=== PATIENT | female | born 1945 | race Asian ===

== ENCOUNTER → 2018-07-16 | Outpatient (CLI) | payer MEDICARE, OTHER | END | disposition home or self-care (01) | LOC: VAS 12:35 | DX: R22.42 Localized swelling, mass and lump, left lower limb (principal) | CPT/HCPCS: 93971 ==

== ENCOUNTER 2018-07-24 13:14 | Inpatient (IN) | payer MEDICARE, OTHER ==
[2018-07-24] MEDS: SODIUM CHLORIDE 0.9% 1L BAG IV* (14:10)
[2018-07-24 14:26] LABS: ADD MAN DIFF? NO
[2018-07-24 14:36] LABS: BASOPHIL # 0.1 10^3/ul (0.0-0.1); BASOPHILS % 0.7 % (0.0-2.0); EOSINOPHILS # 0.3 10^3/ul (0.0-0.5); EOSINOPHILS % 2.3 % (0.0-7.0); HEMATOCRIT 32.7 % (37.0-47.0); HEMOGLOBIN 10.1 g/dl (12.0-16.0); LYMPHOCYTES # 0.9 10^3/ul (0.8-2.9); LYMPHOCYTES % 8.1 % (15.0-51.0); MEAN CORPUSCULAR HEMOGLOBIN 26.9 pg (29.0-33.0); MEAN CORPUSCULAR HGB CONC 30.9 g/dl (32.0-37.0); MEAN CORPUSCULAR VOLUME 87.2 fl (82.0-101.0); MONOCYTES % 9.5 % (0.0-11.0); NEUTROPHIL # 8.5 10^3/ul (1.6-7.5); NEUTROPHILS % 78.9 % (39.0-77.0); PLATELET COUNT 413 10^3/UL (140-415); RED BLOOD COUNT 3.75 10^6/ul (4.20-5.40); RED CELL DISTRIBUTION WIDTH 15.1 % (11.5-14.5)
[2018-07-24 14:36] LABS: WHITE BLOOD COUNT 10.8 10^3/ul (4.8-10.8)
[2018-07-24 14:51] LABS: LACTIC ACID 1.7 mmol/L (0.5-2.0)
[2018-07-24 14:54] LABS: INR 1.01; PARTIAL THROMBOPLASTIN TIME 36.9 Sec (23.0-35.0); PROTIME 13.4 Sec (11.9-14.9)
[2018-07-24 14:58] LABS: ALANINE AMINOTRANSFERASE 19 IU/L (13-69); ALBUMIN 3.7 g/dl (3.3-4.9); ALBUMIN/GLOBULIN RATIO 1.05; ALKALINE PHOSPHATASE 207 IU/L (42-121); ANION GAP 19 (8-16); ASPARTATE AMINO TRANSFERASE 18 IU/L (15-46); BILIRUBIN,INDIRECT 0.3 mg/dl (0-1.1); BILIRUBIN,TOTAL 0.3 mg/dl (0.2-1.3); BLOOD UREA NITROGEN 15 mg/dl (7-20); CALCIUM 8.3 mg/dl (8.4-10.2); CARBON DIOXIDE 31 mmol/L (21-31); CHLORIDE 94 mmol/L (97-110); CREATININE 3.61 mg/dl (0.44-1.00); GLUCOSE 94 mg/dl (70-220); POTASSIUM 3.5 mmol/L (3.5-5.1); SODIUM 140 mmol/L (135-144); TOTAL PROTEIN 7.2 g/dl (6.1-8.1)
[2018-07-24 15:09] LABS: TROPONIN-I 0.036 ng/ml (0.000-0.120)
[2018-07-24] MEDS ORDERED: ONDANSETRON 4 MG INJ IV (18:30)
[2018-07-24] MEDS ORDERED: NACL 0.9% 3 ML SYG IV (18:30)
[2018-07-24] MEDS ORDERED: NITROGLYCERIN (SL) 0.4 MG TAB SL (18:30)
[2018-07-24] MEDS ORDERED: LORAZEPAM 0.5 MG TAB PO (18:30)
[2018-07-24] MEDS ORDERED: CEFTRIAXONE 1 GM INJ IVPB (18:30)
[2018-07-24] MEDS ORDERED: GLUCOSE GEL 15 GRAM TUBE PO ×2 (19:00)
[2018-07-24] MEDS ORDERED: DEXTROSE 50% 50 ML SYRINGE IV ×2 (19:00)
[2018-07-24] MEDS ORDERED: GLUCOSE GEL 15 GRAM TUBE BUCCAL (19:00)
[2018-07-24] MEDS ORDERED: GLUCAGON 1 MG INJ IM (19:00)
[2018-07-24] MEDS: CEFTRIAXONE 1 GM/NS 50 ML IVPB (19:45)
[2018-07-24] MEDS: INSULIN ASPART [NOVOLOG] 3 ML PEN SC (21:00)
[2018-07-24] MEDS: NIFEdipine (XL) 60 MG TAB PO ×2 (21:29→22:09)
[2018-07-24] MEDS: INSULIN GLARGINE [LANTus] (100 UNITS/ML) SYG SC (21:39)
[2018-07-24 22:39] LABS: LACTIC ACID 1.4 mmol/L (0.5-2.0)
[2018-07-24 22:57] LABS: ADD UMIC YES; UR ASCORBIC ACID 40 mg/dL (NEGATIVE); UR BACTERIA MANY /HPF (NONE SEEN); UR BILIRUBIN (Dip) NEGATIVE (NEGATIVE); UR BLOOD (Dip) NEGATIVE (NEGATIVE); UR CLARITY TURBID (CLEAR); UR COLOR AMBER (YELLOW); UR GLUCOSE (Dip) 1+ mg/dL (NEGATIVE); UR KETONES (Dip) TRACE mg/dL (NEGATIVE); UR LEUKOCYTE ESTERASE (Dip) NEGATIVE Leu/ul (NEGATIVE); UR NITRITE (Dip) NEGATIVE (NEGATIVE); UR RBC 13 /HPF (0-5); UR SQUAMOUS EPITHELIAL CELL MANY /HPF (FEW); UR TOTAL PROTEIN (Dip) 3+ mg/dl (NEGATIVE); UR UROBILINOGEN (Dip) NEGATIVE (NEGATIVE); UR WBC 15 /HPF (0-5)
[2018-07-25] MEDS: ALBUTEROL/IPRATROPIUM (NEB) 3 ML AMP HHN (00:20)
[2018-07-25] MEDS: METOLAZONE 5 MG TAB PO (00:48)
[2018-07-25 01:14] LABS: LACTIC ACID 0.9 mmol/L (0.5-2.0)
[2018-07-25] MEDS: ACCU-CHEK XX (02:00)
[2018-07-25 07:18] LABS: ADD MAN DIFF? NO
[2018-07-25 07:21] LABS: BASOPHIL # 0.1 10^3/ul (0.0-0.1); BASOPHILS % 0.9 % (0.0-2.0); EOSINOPHILS # 0.2 10^3/ul (0.0-0.5); EOSINOPHILS % 2.3 % (0.0-7.0); HEMATOCRIT 30.5 % (37.0-47.0); HEMOGLOBIN 9.3 g/dl (12.0-16.0); LYMPHOCYTES % 9.8 % (15.0-51.0); MEAN CORPUSCULAR HGB CONC 30.5 g/dl (32.0-37.0); MEAN CORPUSCULAR VOLUME 88.7 fl (82.0-101.0); MEAN PLATELET VOLUME 9.3 fl (7.4-10.4); MONOCYTE # 0.9 10^3/ul (0.3-0.9); MONOCYTES % 8.5 % (0.0-11.0); NEUTROPHIL # 7.8 10^3/ul (1.6-7.5); NEUTROPHILS % 78.3 % (39.0-77.0); PLATELET COUNT 413 10^3/UL (140-415); RED BLOOD COUNT 3.44 10^6/ul (4.20-5.40); RED CELL DISTRIBUTION WIDTH 15.2 % (11.5-14.5)
[2018-07-25 07:29] LABS: HEMOGLOBIN A1C 5.4 % (0-5.9)
[2018-07-25 07:44] LABS: ALBUMIN/GLOBULIN RATIO 1.03; ANION GAP 19 (8-16); BILIRUBIN,TOTAL 0.1 mg/dl (0.2-1.3)
[2018-07-25 07:46] LABS: ALANINE AMINOTRANSFERASE 11 IU/L (13-69); ALBUMIN 3.3 g/dl (3.3-4.9); ALKALINE PHOSPHATASE 195 IU/L (42-121); ASPARTATE AMINO TRANSFERASE 19 IU/L (15-46); BILIRUBIN,INDIRECT 0.1 mg/dl (0-1.1); BLOOD UREA NITROGEN 24 mg/dl (7-20); CALCIUM 7.9 mg/dl (8.4-10.2); CARBON DIOXIDE 31 mmol/L (21-31); CHLORIDE 94 mmol/L (97-110); CREATININE 4.82 mg/dl (0.44-1.00); GLUCOSE 86 mg/dl (70-220); MAGNESIUM 1.9 mg/dl (1.7-2.5); PHOSPHORUS 3.7 mg/dl (2.5-4.9); POTASSIUM 3.9 mmol/L (3.5-5.1); SODIUM 140 mmol/L (135-144); TOTAL PROTEIN 6.5 g/dl (6.1-8.1)
[2018-07-25] MEDS: INSULIN ASPART [NOVOLOG] 3 ML PEN SC ×7 (07:55→20:36)
[2018-07-25 08:20] LABS: HEPATITIS B SURFACE ANTIGEN NEGATIVE (NEGATIVE)
[2018-07-25] MEDS: ALBUMIN HUMAN 25% 100 ML IV (08:43)
[2018-07-25] MEDS ORDERED: FUROSEMIDE 40 MG TAB PO (09:00)
[2018-07-25] MEDS: PANTOPRAZOLE (EC) 40 MG TAB PO (09:58)
[2018-07-25] MEDS: EZETIMIBE 10 MG TAB PO (09:58)
[2018-07-25] MEDS: CALCIUM CARBONATE 1.25 GM TAB PO (09:58)
[2018-07-25] MEDS: NIFEdipine (XL) 60 MG TAB PO ×2 (12:36→20:36)
[2018-07-25] MEDS: ISOSORBIDE MONONITRATE(SR)30 MG TAB PO (12:36)
[2018-07-25] MEDS: LIDOCAINE 1% (MPF) 5 ML VIAL (15:43)
[2018-07-25 17:40] LABS: FLD PMN% 13.1 %; FLD RBC 3000 /uL; FLD WBC 406 /cmm
[2018-07-25 17:55] LABS: FLUID LD 253 U/L; FLUID TOTAL PROTEIN 3.5 g/dl; FLUID TYPE THORACENTESIS FLUID
[2018-07-25 18:09] LABS: FLUID GLUCOSE 55 mg/dl; FLUID TYPE THORACENTESIS FLUID
[2018-07-25 18:12] LABS: FLD CLARITY HAZY; FLD COLOR YELLOW
[2018-07-25 18:12] LABS: FLD TYPE PLEURAL
[2018-07-25 18:13] LABS: FLD MN% 86.9 %
[2018-07-25] MEDS: CEFTRIAXONE 1 GM/NS 50 ML IVPB (18:27)
[2018-07-25 19:16] LABS: CREATINE KINASE 49 IU/L (23-200)
[2018-07-25 19:26] LABS: CK INDEX 3.9
[2018-07-25] MEDS ORDERED: INSULIN GLARGINE [LANTus] (100 UNITS/ML) SYG SC (20:00)
[2018-07-25] MEDS: INSULIN GLARGINE [LANTus] (100 UNITS/ML) SYG SC (20:41)
[2018-07-26 01:13] LABS: CREATINE KINASE 52 IU/L (23-200)
[2018-07-26 01:23] LABS: CK INDEX 3.8; CK-MB 1.97 ng/ml (0.0-2.4)
[2018-07-26 01:26] LABS: TROPONIN-I 0.037 ng/ml (0.000-0.120)
[2018-07-26] MEDS: ACCU-CHEK XX (02:00)
[2018-07-26 07:31] LABS: ADD MAN DIFF? NO
[2018-07-26 07:36] LABS: BASOPHIL # 0.1 10^3/ul (0.0-0.1); BASOPHILS % 0.8 % (0.0-2.0); EOSINOPHILS # 0.3 10^3/ul (0.0-0.5); EOSINOPHILS % 2.9 % (0.0-7.0); HEMATOCRIT 27.5 % (37.0-47.0); HEMOGLOBIN 8.4 g/dl (12.0-16.0); LYMPHOCYTES # 0.8 10^3/ul (0.8-2.9); LYMPHOCYTES % 8.9 % (15.0-51.0); MEAN CORPUSCULAR HEMOGLOBIN 26.8 pg (29.0-33.0); MEAN CORPUSCULAR HGB CONC 30.5 g/dl (32.0-37.0); MEAN CORPUSCULAR VOLUME 87.6 fl (82.0-101.0); MEAN PLATELET VOLUME 9.5 fl (7.4-10.4); MONOCYTE # 0.8 10^3/ul (0.3-0.9); MONOCYTES % 8.6 % (0.0-11.0); NEUTROPHIL # 7.1 10^3/ul (1.6-7.5); NEUTROPHILS % 78.4 % (39.0-77.0); PLATELET COUNT 367 10^3/UL (140-415); RED BLOOD COUNT 3.14 10^6/ul (4.20-5.40); RED CELL DISTRIBUTION WIDTH 15.1 % (11.5-14.5)
[2018-07-26 07:36] LABS: WHITE BLOOD COUNT 9.1 10^3/ul (4.8-10.8)
[2018-07-26] MEDS: ALBUMIN HUMAN 25% 100 ML IV (07:43)
[2018-07-26] MEDS: INSULIN ASPART [NOVOLOG] 3 ML PEN SC ×7 (07:55→21:00)
[2018-07-26 07:57] LABS: CREATINE KINASE 65 IU/L (23-200)
[2018-07-26 07:58] LABS: CHOL/HDL RATIO 3.7 RATIO; HDL CHOLESTEROL 28 mg/dl (33-92); LDL CHOLESTEROL,CALCULATED 60 mg/dl; TRIGLYCERIDES 80 mg/dl (0-149)
[2018-07-26 07:58] LABS: CHOLESTEROL 104 mg/dl (100-200)
[2018-07-26 08:05] LABS: ANION GAP 21 (8-16); BLOOD UREA NITROGEN 41 mg/dl (7-20); CALCIUM 7.3 mg/dl (8.4-10.2); CARBON DIOXIDE 27 mmol/L (21-31); CHLORIDE 94 mmol/L (97-110); CREATININE 6.52 mg/dl (0.44-1.00); GLUCOSE 181 mg/dl (70-220); MAGNESIUM 1.7 mg/dl (1.7-2.5); PHOSPHORUS 4.1 mg/dl (2.5-4.9); POTASSIUM 4.5 mmol/L (3.5-5.1); SODIUM 137 mmol/L (135-144)
[2018-07-26 08:08] LABS: CK INDEX 2.8; CK-MB 1.79 ng/ml (0.0-2.4); TROPONIN-I 0.042 ng/ml (0.000-0.120)
[2018-07-26] MEDS: ISOSORBIDE MONONITRATE(SR)30 MG TAB PO (09:00)
[2018-07-26] MEDS ORDERED: EPOETIN 4000 UNITS/1 ML INJ (ESRD) IV (10:00)
[2018-07-26] MEDS: EZETIMIBE 10 MG TAB PO (11:12)
[2018-07-26] MEDS: PANTOPRAZOLE (EC) 40 MG TAB PO (11:13)
[2018-07-26] MEDS: CALCIUM CARBONATE 1.25 GM TAB PO (11:14)
[2018-07-26] MEDS: NIFEdipine (XL) 60 MG TAB PO (12:41)
[2018-07-26] MEDS: SOD FERRIC GLUC COMPLX 125 MG in SOD CHLORIDE 0.9% 100 ML IVPB (15:36)
[2018-07-26] MEDS: EPOETIN 4000 UNITS/1 ML INJ (ESRD) IV (15:37)
[2018-07-26] MEDS ORDERED: EPOETIN 3000 UNITS/1 ML INJ (ESRD) IV (17:00)
[2018-07-26 18:52] LABS: HEMATOCRIT 30.9 % (37.0-47.0)
[2018-07-26] MEDS: NIFEdipine (XL) 30 MG TAB PO (21:39)
[2018-07-26] MEDS: INSULIN GLARGINE [LANTus] (100 UNITS/ML) SYG SC (21:51)
[2018-07-27] MEDS: ACCU-CHEK XX (02:00)
[2018-07-27] MEDS: INSULIN ASPART [NOVOLOG] 3 ML PEN SC ×6 (08:00→17:31)
[2018-07-27] MEDS: EZETIMIBE 10 MG TAB PO (08:37)
[2018-07-27] MEDS: CALCIUM CARBONATE 1.25 GM TAB PO (08:37)
[2018-07-27] MEDS: ISOSORBIDE MONONITRATE(SR)30 MG TAB PO (08:37)
[2018-07-27] MEDS: PANTOPRAZOLE (EC) 40 MG TAB PO (08:38)
[2018-07-27] MEDS: NIFEdipine (XL) 30 MG TAB PO (08:38)
== END 2018-07-27 19:30 | disposition home or self-care (01) | DRG 291 ==
LOC: E/R 13:14 → TEL 20:48
PROC: 0W993ZZ Drainage of Right Pleural Cavity, Percutaneous Approach (ICD-10-PCS; principal; 2018-07-25)
PROC: 5A1D70Z Performance of Urinary Filtration, Intermittent, Less than 6 Hours Per Day (ICD-10-PCS; 2018-07-25)
PROC: 5A1D70Z Performance of Urinary Filtration, Intermittent, Less than 6 Hours Per Day (ICD-10-PCS; 2018-07-26)
PROC: 5A1D70Z Performance of Urinary Filtration, Intermittent, Less than 6 Hours Per Day (ICD-10-PCS; 2018-07-27)
DX: I13.2 Hypertensive heart and chronic kidney disease with heart failure and with stage 5 chronic kidney disease, or end stage renal disease (principal); N18.6 End stage renal disease; I50.33 Acute on chronic diastolic (congestive) heart failure; G81.94 Hemiplegia, unspecified affecting left nondominant side; N17.9 Acute kidney failure, unspecified; N39.0 Urinary tract infection, site not specified; E11.51 Type 2 diabetes mellitus with diabetic peripheral angiopathy without gangrene; E11.22 Type 2 diabetes mellitus with diabetic chronic kidney disease; E11.42 Type 2 diabetes mellitus with diabetic polyneuropathy; E87.70 Fluid overload, unspecified; D63.1 Anemia in chronic kidney disease; I69.322 Dysarthria following cerebral infarction; I25.10 Atherosclerotic heart disease of native coronary artery without angina pectoris; M81.0 Age-related osteoporosis without current pathological fracture; Z99.2 Dependence on renal dialysis; Z79.4 Long term (current) use of insulin; Z79.84 Long term (current) use of oral hypoglycemic drugs; Z79.82 Long term (current) use of aspirin; Z95.1 Presence of aortocoronary bypass graft
CPT/HCPCS: 36415; 71045; 76942; 80048; 80053; 80061; 81001; 82550; 82553; 82945; 82962; 83036; 83605; 83615; 83735; 84100; 84157; 84484; 85014; 85025; 85610; 85730; 87040; 87070; 87086; 87102; 87116; 87340; 88104; 88162; 88305; 89051; 90935; 93005; 93306; 93970; 94664; 99291-25

== ENCOUNTER → 2018-11-05 | Outpatient (CLI) | payer MEDICARE, OTHER | END | disposition home or self-care (01) | LOC: RAD 09:31 | DX: R05 Cough (principal) | CPT/HCPCS: 71046 ==

== ENCOUNTER → 2018-11-05 | Outpatient (CLI) | payer MEDICARE, OTHER | END | disposition home or self-care (01) | LOC: RAD 10:10 | DX: S80.12XD Contusion of left lower leg, subsequent encounter (principal); W19.XXXD Unspecified fall, subsequent encounter | CPT/HCPCS: 71046; 73590 ==

== ENCOUNTER 2019-07-06 14:21 | Emergency (ER) | payer MEDICARE, OTHER | END 2019-07-06 18:00 | disposition home or self-care (01) | LOC: E/R 14:21 | DX: R10.2 Pelvic and perineal pain (principal); I10 Essential (primary) hypertension; R42 Dizziness and giddiness; M79.18 Myalgia, other site; E11.9 Type 2 diabetes mellitus without complications; Z79.4 Long term (current) use of insulin; Z86.73 Personal history of transient ischemic attack (TIA), and cerebral infarction without residual deficits; Z79.82 Long term (current) use of aspirin | CPT/HCPCS: 72220; 99283-25 ==